=== PATIENT | female | born 1985 | race Caucasian/White ===

== ENCOUNTER 2019-11-27 05:43 | Day surgery (SDC) | payer OTHER ==
[2019-11-27] VITALS (11 sets, daily range): BP systolic 113–124; BP diastolic 62–81
[~2019-11-27] VITALS: Ht 160 cm; Wt 55.3 kg
[2019-11-27] MEDS ORDERED: Sterile Water Irrig 1000ml IRRIG ONE (05:44)
--- NOTE | 2019-11-27 06:16 | Pre-Procedure Note/Attestation ---
Pre-Procedure Note/Attestation Complete Prior to Procedure Planned Procedure: bilateral Procedure Narrative: ORIF nasal fracture Septoplasty SMR bilateral inferior turbinates Indications for Procedure Pre-Operative Diagnosis: 1. Nasal fracture 2. Septal deviation 3. Hypertrophied bilateral inferior turbinates Attestation I attest that I discussed the nature of the procedure; its benefits; risks and complications; and alternatives (and the risks and benefits of such alternatives ), prior to the procedure, with the patient (or the patient's legal insurance claim representative). I attest that, if there was a reasonable possibility of needing a blood transfusion, the patient (or the patient's legal insurance claim representative) was given the [place] [employer] standardized written summary, pursuant to the Sunil Tika Blood Safety Act ([place] Health and Safety Code # 1645, as amended). I attest that I re-evaluated the patient just prior to the surgery and that there has been no change in the patient's H&P. Carmelo Vicente MD Nov 27, 2019 06:16
--- NOTE | 2019-11-27 06:17 | Brief Operative Note ---
Immediate Post Operative Note Operative Note Chief Complaint: Nasal trauma resulting in nasal deformitym septal deviation and hypertrophi Pre-op Diagnosis: 1. Nasal fracture 2. Septal deviation 3. Hypertrophied bilateral inferior turbinates Procedure: 1. ORIF nasal fracture 2. Septoplasty 3. SMR bilateral inf. turbinates Post-op Diagnosis: same as pre-op Surgeon: Carmelo Vicente MD Tool And Die Engineer: none Additional Surgeons: none Anesthesiologist: Bryan LY Anesthesia: general Specimen: none Complications: none Condition: stable Fluids: D5LR Estimated Blood Loss: volume - 50 cc Drains: none Packing: Nasal sinus gel Implant(s) used?: No Carmelo Vicente MD Nov 27, 2019 06:17
--- NOTE | 2019-11-27 06:19 | Discharge Instructions ---
Discharge Instructions Discharge Instructions Follow up with: 12/04/[address] Vicente's office Diet: regular Resume Normal Activity?: No Activity: light activity Pneumonia Vaccine: pt refused vaccine Influenza Vaccine (Mar to Aug): pt refused vaccine Follow Up Orders pt has printed instructions that were given to her pre op at my office which we reviewed together . Return to Work/School on: Dec 11, 2019 For Surgical Patients Dressing Care: may change - drip pad as needed. DO not remove cast For Congestive Heart Failure Reminder Report to your physician any weight gain of 5 pounds or more in one week. Carmelo Vicente MD Nov 27, 2019 06:19
[2019-11-27] MEDS ORDERED: NORCO 5-325 TA1 EAC1 ORAL (06:21)
[2019-11-27] MEDS ORDERED: AMOXICILLIN500 MG ORAL (06:21)
[2019-11-27] MEDS ORDERED: Lidocaine 1% 10mg/ml/Epi 0.005mg/ml 30ml vial INJ ONE (07:05)
[2019-11-27] MEDS ORDERED: Cocaine HCl 4% 4ml vial TOPIC ONE (07:05)
[2019-11-27] MEDS ORDERED: Bacitracin Oint 15gm Tube TOPIC ONE (07:05)
[2019-11-27] MEDS ORDERED: Bupivacaine w/Epi 0.5% 30ml Vial INJ ONE (07:06)
[2019-11-27] MEDS ORDERED: ceFAZolin sod 1 GM in D5W 55 ML IV ONE (07:15)
[2019-11-27] MEDS ORDERED: NS Irrig 1000ml IRRIG ONE (07:50)
[2019-11-27] MEDS ORDERED: fentaNYL 100 mcg/2 mL IV ONE (07:52)
[2019-11-27] MEDS ORDERED: Lidocaine 1% MPF 10mg/ml 5ml ONE (08:06)
--- NOTE | 2019-11-27 08:12 | Anethesia Preoperative Eval ---
Anesthesia Pre-op PMH/ROS General Date of Evaluation: Nov 27, 2019 Time of Evaluation: 07:00 ASA Score: ASA 1 Mallampati Score Class I : Soft palate, uvula, fauces, pillars visible Class II: Soft palate, uvula, fauces visible Class III: Soft palate, base of uvula visible Class IV: Only hard plate visible Mallampati Classification: Class I Allergies: Coded Allergies: No Known Allergies (Unverified , 11/27/19) Patient NPO?: Yes Anesthesia Pre-op Phys. Exam Physician Exam Last Vital Signs Date Time Temp Pulse Resp B/P (MAP) Pulse Ox O2 Delivery O2 Flow Rate FiO2 11/27/19 06:27 Room Air 11/27/19 06:27 98.0 69 18 113/69 98 Airway Exam Mallampati Score: Class I Anesthesia Pre-op A/P Labs Urine Test Test 11/27/19 05:50 Urine HCG, Qualitative Negative (NEGATIVE) Shasta Zapata MD Nov 27, 2019 08:12
--- NOTE | 2019-11-27 08:13 | Immediate Post-Op Evaluation ---
Immediate Post-Op Evalulation Immediate Post-Op Evalulation Procedure: orif nasal fracture Date of Evaluation: Nov 27, 2019 Nausea: No Vomiting: No Shasta Zapata MD Nov 27, 2019 08:13
[2019-11-27] MEDS ORDERED: HYDROcodone/Acetamin 5/325 tab ORAL PRN (08:30)
[2019-11-27] MEDS: fentaNYL 100 mcg/2 mL IV PRN ×3 (08:33→09:07)
[2019-11-27] MEDS ORDERED: Metoclopramide 10mg/2ml Inj IVP ONE (09:00)
[2019-11-27] MEDS ORDERED: Metoclopramide 10mg/2ml Inj IVP PRN (12:00)
[2019-11-27] MEDS ORDERED: HYDROmorphone 1mg/ml Carpuject SUBQ PRN (12:00)
[2019-11-27] MEDS ORDERED: LR 1000ml ONE (13:00)
--- NOTE | 2019-11-27 19:00 | Operative Note - Dictated ---
DATE OF OPERATION: 11/27/2019 SURGEON: Carmelo Vicente MD. BENCH LATHE OPERATOR: None. ANESTHESIOLOGIST: Benny ANESTHESIA: LMA general anesthesia as well as 14 mL of 50:50 mixture of 1% lidocaine with 1:100,000 epinephrine and Marcaine 0.5% with 1:200,000 epinephrine. Also, 4 mL of 4% topical cocaine placed on four nasal pledgets placed intranasally and accounted for at the end of the case. PREOPERATIVE DIAGNOSES: Nasal fracture, septal deviation, and hypertrophied right and left inferior turbinates. POSTOPERATIVE DIAGNOSES: Nasal fracture, septal deviation, and hypertrophied right and left inferior turbinates. FINDINGS: Nasal fracture, septal deviation, and hypertrophied right and left inferior turbinates. PROCEDURE: 1. Open reduction and internal fixation of nasal fracture. 2. Septoplasty. 3. Submucous section of right and left inferior turbinates. TECHNIQUE: The patient was prepped and draped in usual manner via LMA general anesthesia. Time-out was performed. All agreed as to the procedures to be done. I then proceeded to inject the aforementioned lidocaine, Marcaine, and epinephrine mixture in the nasal area. I then proceeded to place the nasal pledgets. Incision was made in either inferior turbinate with a 15 blade. Radiofrequency wand placed x2 in each inferior turbinate after coating with saline gel for 10 seconds each time. I then outfractured bilaterally with a butter knife. I was able to reduce the septal deviation with an Baldemar forceps pushing it back into place. I was able to put a pinky finger in either nostril post septoplasty and reduction of inferior turbinates. I now turned my attention to the nasal fractures. Incision was made between the cartilage bilaterally with 15 blade in lower lateral. I then elevated with an Aufricht forceps over the periosteum of the nasal bone. I then used a gouge osteotome to reduce the nasal midline fracture. This was followed by removing the bone and cartilage which was about 3 mm. I then used lower lateral guarded osteotomes to complete the fracture. The nose was completely mobile. I then used a rasp to file down as well as an angled scissors to remove some of the supratip scarring. I then placed a suture through the septum where I made the incision for reducing the anterior nasal cartilage of the septum, one 4-0 plain suture. I injected sinonasal gel in the either nostril. Tape was placed on the nose after skin prep had become sticky. Stent was placed. Mustache dressing was placed. ESTIMATED BLOOD LOSS: 50 mL. COMPLICATIONS: None. DRAINS: None. POSTOPERATIVE CONDITION: The patient was awake and alert, and stable in the recovery room 15 minutes after the procedure. I did speak with her nurse and case work aide as well. Carmelo Vicente M.D. DR: EDUARDO JOB#: [id number] CC: GINA
== END 2019-11-27 10:50 | disposition home or self-care (01) ==
LOC: SUR 05:43
DX: S02.2XXA Fracture of nasal bones, initial encounter for closed fracture (principal); J34.2 Deviated nasal septum; J34.3 Hypertrophy of nasal turbinates; X58.XXXA Exposure to other specified factors, initial encounter; Y92.9 Unspecified place or not applicable
CPT/HCPCS: 21330; 30140; 30520; 81025; 94003; C9046; J2405; J2704; J2765; J3010; J7120; 94150